=== PATIENT | female | born 1985 | race Two or more races ===

== ENCOUNTER 2025-05-05 09:38 | Emergency (ER) | payer OTHER ==
[~2025-05-05] VITALS: Ht 157.5 cm; Wt 58.1 kg
[2025-05-05] MEDS ORDERED: BUSPIRONE HCL30 MG PO (10:29)
[2025-05-05] MEDS ORDERED: BUTALB-ACETAMI1 EAC2 PO (10:29)
[2025-05-05 10:30] VITALS: BP 125/87; O2SAT 100
[2025-05-05] MEDS ORDERED: VENLAFAXINE HC150 MG PO (10:30)
[2025-05-05] MEDS ORDERED: BUTALB/ACETAMINOPHEN/CAFFEINE 1 TAB TABLET PO ONE ×2 (11:15→11:20)
[2025-05-05] MEDS ORDERED: ONDANSETRON HCL 2 MG/ML VIAL IV ONE (11:15)
[2025-05-05] MEDS ORDERED: DEXAMETHASONE SODIUM PHOSPHATE 4 MG/ML VIAL IV ONE (11:15)
[2025-05-05] MEDS ORDERED: FAMOTIDINE/PF 20 MG/2 ML VIAL IV ONE (11:15)
[2025-05-05] MEDS ORDERED: 0.9 % SODIUM CHLORIDE 1,000 ML IV ONE (11:15)
[2025-05-05] MEDS ORDERED: ONDANSETRON HCL 2 MG/ML VIAL ONE ×3 (11:20→11:34)
[2025-05-05] MEDS ORDERED: DEXAMETHASONE SODIUM PHOSPHATE 4 MG/ML VIAL ONE (11:20)
[2025-05-05 12:29] LABS: BASO % 0.2 % (0.1-1.2); EOS # 0.00 (0.04-0.54); EOS % 0.0 % (0.7-7.0); LYMPH # 0.74 (1.18-3.74); LYMPH % 6.3 % (19.3-53.1); MEAN PLATELET VOLUME 11.50 fl (9.4-12.4); MONO # 0.21 (0.24-0.82); MONO % 1.8 % (4.7-12.5); NEUT # 10.80 (1.56-6.13); NEUT % 91.4 % (34.0-71.1); RED CELL DISTRIBUTION WIDTH 12.5 % (11.6-14.4)
[2025-05-05 12:50] LABS: INR 1.04
[2025-05-05 12:57] LABS: ALT/SGPT 26 U/L (12-78); AST/SGOT 18 U/L (15-37); BILIRUBIN TOTAL 0.51 mg/dL (0.3-1.2); BUN CREA RATIO 18 (7.0-25.0); CREATININE SERUM 0.60 mg/dL (0.55-1.02); GFR 110.17; GLOBULINA 4.0 G/DL (2.4-3.5); GLUCOSE FASTING 122 mg/dL (65-100); OSMOLALITY SERUM 278 MOSM/KG (275-295)
[2025-05-05 13:07] LABS: URINE APPEARANCE Cloudy; URINE BILIRRUBIN Negative (NEGATIVE); URINE BLOOD Negative; URINE COLOR Yellow; URINE GLUCOSE Negative (NEGATIVE); URINE KETONE 15 (NEGATIVE); URINE LEUKOCYTE Trace; URINE NITRATE Negative; URINE PROTEIN Trace (NEGATIVE); URINE UROBILINOGEN 0.2 E.U./dl
[2025-05-05 13:08] LABS: COVID-19 AG NEGATIVE (NEGATIVE)
[2025-05-05 13:11] LABS: URINE BACTERIA 1417.1 uL (0.0-1933); URINE EPITHELIAL CELLS 51.2 uL (0.0-38.8); URINE RBC 13.3 uL (0.0-20.8); URINE WBC 24.6 uL (0.0-23.2)
[2025-05-05 13:28] LABS: URINE CAST 0.29 uL (0.0-1.40)
[2025-05-05] MEDS ORDERED: INTESTINEX680 M1 PO (14:13)
[2025-05-05] MEDS ORDERED: ZOFRAN8 MG PO (14:13)
[2025-05-05] MEDS ORDERED: BUTALB-ACETAMI1 EACH PO (14:13)
[2025-05-05] MEDS ORDERED: BUTALBIT-ACETA1 EACH PO (14:15)
== END 2025-05-05 14:50 | disposition home or self-care (01) ==
LOC: ER 09:38
DX: A05.9 Bacterial foodborne intoxication, unspecified (principal); R11.10 Vomiting, unspecified; Z20.822 Contact with and (suspected) exposure to COVID-19; Z88.6 Allergy status to analgesic agent